=== PATIENT | male | born 1960 | race Caucasian/White ===

== ENCOUNTER 2020-05-26 01:31 | Emergency (ER) | payer SELFPAY ==
[~2020-05-26] VITALS: Ht 185.4 cm; Wt 100.0 kg
--- NOTE | 2020-05-26 01:46 | NUR ---
TASK RN: PT ARRIVES TO ED, AMBULATORY, WITH [facility] FOR CO COUGH/SOB X ONE WEEK. PT SPEAKING IN FULL SENTENCES, RR WNL. SPO2 > 90% ON RA. DENIES PULM/CARDIAC MEDICAL HISTORY. BP/SPO2/ECG MONITORING IN PLACE. NSR ON MONITOR. REPORT TO PRIMARY RNALVARADO
[2020-05-26] MEDS ORDERED: ALBUTEROL/IPRATROPIUM 2.5MG/0.5MG, 3 ML ONE (01:53)
[2020-05-26] MEDS ORDERED: ALBUTEROL/IPRATROPIUM 2.5MG/0.5MG, 3 ML NPPB ONE (02:00)
[2020-05-26] MEDS ORDERED: PLEASE ENTER ALLERGIES MC SCH (02:00)
[2020-05-26 02:26] LABS: BASOPHILS % (AUTO) 1 % (0-1); EOSINOPHILS % (AUTO) 9 % (1-7); LYMPHOCYTES % (AUTO) 22 % (22-44); MEAN CORPUSCULAR HEMOGLOBIN 32.4 pg (27.5-34.5); MEAN CORPUSCULAR HGB CONC 34.1 g/dL (33.2-36.2); MONOCYTES % (AUTO) 12 % (2-9); NEUTROPHILS % (AUTO) 56 % (42-75); PLATELET COUNT 284 x10^3/uL (130-400); RED BLOOD COUNT 4.22 x10^6/uL (4.38-5.82); RED CELL DISTRIBUTION WIDTH 13.9 % (9.4-14.8)
[2020-05-26 02:37] LABS: ALBUMIN 3.3 g/dL (3.4-5.0); ANION GAP 3 mmol/L (5-15); CALCIUM 8.5 mg/dL (8.5-10.1); CHLORIDE 108 mmol/L (98-107); CREATININE 1.13 mg/dL (0.7-1.3)
[2020-05-26 02:42] LABS: TROPONIN I < 0.015 ng/mL (0.000-0.045)
[2020-05-26 03:04] LABS: MD NO
[2020-05-26 04:03] VITALS: BP 97/61
== END 2020-05-26 04:12 | disposition home or self-care (01) ==
LOC: ED 02:06
DX: J44.1 Chronic obstructive pulmonary disease with (acute) exacerbation (principal); I44.4 Left anterior fascicular block; I51.7 Cardiomegaly; R94.31 Abnormal electrocardiogram [ECG] [EKG]; R07.9 Chest pain, unspecified; Z87.891 Personal history of nicotine dependence
CPT/HCPCS: 36415; 71045; 80048; 82040; 84484; 85025; 93005; 94640; 99285; J7512